=== PATIENT | male | born 1965 | race Caucasian/White ===

== ENCOUNTER 2020-03-31 23:04 | Emergency (ER) | payer OTHER ==
[~2020-03-31] VITALS: Ht 182.9 cm; Wt 90.7 kg
[2020-04-01 00:48] LABS: BASOPHILS # (AUTO) 0.1 (0.0-0.1); BASOPHILS % 2.5 % (0.0-1.0); EOSINOPHILS # (AUTO) 0.2 (0.0-0.4); EOSINOPHILS % 4.3 % (0.0-6.0); HEMATOCRIT 28.7 % (38.2-49.6); HEMOGLOBIN 7.7 g/dL (14.0-18.0); LYMPHOCYTES # (AUTO) 1.7 (1.0-3.2); LYMPHOCYTES % 34.7 % (18.0-39.1); MEAN CORPUSCULAR HEMOGLOBIN 16.2 pg (28-32); MEAN CORPUSCULAR HGB CONC 26.8 g/dL (31-35); MEAN CORPUSCULAR VOLUME 60.5 fL (81-99); MONOCYTES # (AUTO) 0.5 (0.2-0.8); MONOCYTES % 9.3 % (4.4-11.3); NEUTROPHILS # (AUTO) 2.4 (2.1-6.9); PLATELET COUNT 401 x10e3/uL (140-360); RED BLOOD COUNT 4.74 x10e6/uL (4.3-5.7)
[2020-04-01 00:55] LABS: CHLORIDE 98 mmol/L (98-107); POTASSIUM 4.2 mmol/L (3.5-5.1); SODIUM 130 mmol/L (136-145)
[2020-04-01 00:59] LABS: ALANINE AMINOTRANSFERASE 57 IU/L (0-55); ALBUMIN 3.8 g/dL (3.5-5.0); ALBUMIN/GLOBULIN RATIO 1.2 (0.8-2.0); ALKALINE PHOSPHATASE 113 IU/L (40-150); ANION GAP 17.2 mmol/L (8-16); BLOOD UREA NITROGEN < 5 mg/dL (7-26); CALCIUM 8.5 mg/dL (8.4-10.2); CARBON DIOXIDE 19 mmol/L (22-29); CREATINE KINASE 25 IU/L (30-200); CREATININE, SERUM 0.84 mg/dL (0.72-1.25); EST GLOMERULAR FILTRATION RATE > 60 ML/MIN (60-); GLUCOSE 129 mg/dL (74-118)
[2020-04-01 01:05] LABS: BUN/CREATININE RATIO 6 (6-25)
--- NOTE | 2020-04-01 01:20 | Emergency Department Note ---
History of Present Illnes History of Present Illness Chief Complaint: General Medicine Complaints History of Present Illness This is a 54 year old male arrives to the ED with complaints generalized malaise and weakness for several months. Patient's is concerned that the symptoms are a cause of his iron deficiency and underlying from a blood disorder. Chief Complaint Comment 54 Y/O MALE PT AAOX3 PRESENTS TO THE ER C/O GENERLIZED WEAKNESS AND NAUSEA FOR THE PAST X6 MONTHS WITH WORSENING TONIGHT; STATES HE HAS HAD DECREASED APPETITE AND NOT INTAKING ANY FLUIDS; PT REPORTS DAILY ETOH INTAKE, 2-4 BEERS DAILY; PT ALSO REPORTS INFLAMMATION ON HIS BUTTOCKS; NAD NOTED AT THIS TIME; V/S/S. Historian: Patient Arrival Mode: Car Onset (how long ago): month(s) Duration (how long): month(s) Timing of current episode: constant Progression: unchanged Chronicity: chronic Context: Denies recent illness, Denies recent immobilization, Denies trauma/injury, Denies new medications, Denies hx of DVT/PE, Denies non- compliance w/ medications Relieving factors: none Past Medical/Family History Physician Review I have reviewed the patient's past medical and family history. Any updates have been documented here. Past Medical History Recent Fever: No Clinical Suspicion of Infectio: No New/Unexplained Change in Ment: No Past Medical History: Anemia Past Surgical History: Appendectomy, Hernia Repair Other Surgery: RT FOOT SX Review of Systems Review of Systems Constitutional: Reports as per HPI, Reports malaise, Reports weakness EENTM: Reports no symptoms Cardiovascular: Reports no symptoms Respiratory: Reports no symptoms Gastrointestinal: Reports no symptoms Genitourinary: Reports no symptoms Musculoskeletal: Reports no symptoms Integumentary: Reports no symptoms Neurological: Reports no symptoms Psychological: Reports no symptoms Endocrine: Reports no symptoms Hematological/Lymphatic: Reports no symptoms Physical Exam Related Data Allergies: Coded Allergies: No Known Allergies (Unverified , 04/01/20) Triage Vital Signs Vital Signs Date Time Temp Pulse Resp B/P (MAP) Pulse Ox O2 Delivery O2 Flow Rate FiO2 04/01/20 00:04 98.1 95 20 145/81 100 Room Air Vital signs reviewed: Yes Physical Exam CONSTITUTIONAL Constitutional: Present well-developed, Present well-nourished HENT HENT: Present normocephalic, Present atraumatic, Present oropharynx clear/moist, Present nose normal HENT L/R: Present left ext ear normal, Present right ext ear normal EYES Eyes: Reports PERRL, Reports conjunctivae normal NECK Neck: Present ROM normal PULMONARY Pulmonary: Present effort normal, Present breath sounds normal CARDIOVASCULAR Cardiovascular: Present regular rhythm, Present heart sounds normal, Present capillary refill normal, Present normal rate GASTROINTESTINAL Abdominal: Present soft, Present nontender, Present bowel sounds normal GENITOURINARY Genitourinary: Present exam deferred SKIN Skin: Present warm, Present dry MUSCULOSKELETAL Musculoskeletal: Present ROM normal NEUROLOGICAL Neurological: Present alert, Present oriented x 3, Present no gross motor or sensory deficits PSYCHOLOGICAL Psychological: Present mood/affect normal, Present judgement normal Results Laboratory Result Diagram: 04/01/20 0020 04/01/20 0020 Laboratory Laboratory Tests Test 04/01/20 00:20 White Blood Count 4.84 x10e3/uL (4.8-10.8) Red Blood Count 4.74 x10e6/uL (4.3-5.7) Hemoglobin 7.7 g/dL (14.0-18.0) Hematocrit 28.7 % (38.2-49.6) Mean Corpuscular Volume 60.5 fL (81-99) Mean Corpuscular Hemoglobin 16.2 pg (28-32) Mean Corpuscular Hemoglobin Concent 26.8 g/dL (31-35) Red Cell Distribution Width 22.0 % (11.7-14.4) Platelet Count 401 x10e3/uL (140-360) Neutrophils (%) (Auto) 49.0 % (38.7-80.0) Lymphocytes (%) (Auto) 34.7 % (18.0-39.1) Monocytes (%) (Auto) 9.3 % (4.4-11.3) Eosinophils (%) (Auto) 4.3 % (0.0-6.0) Basophils (%) (Auto) 2.5 % (0.0-1.0) Neutrophils # (Auto) 2.4 (2.1-6.9) Lymphocytes # (Auto) 1.7 (1.0-3.2) Monocytes # (Auto) 0.5 (0.2-0.8) Eosinophils # (Auto) 0.2 (0.0-0.4) Basophils # (Auto) 0.1 (0.0-0.1) Absolute Immature Granulocyte (auto 0.01 x10e3/uL (0-0.1) Sodium Level 130 mmol/L (136-145) Potassium Level 4.2 mmol/L (3.5-5.1) Chloride Level 98 mmol/L (98-107) Carbon Dioxide Level 19 mmol/L (22-29) Anion Gap 17.2 mmol/L (8-16) Blood Urea Nitrogen < 5 mg/dL (7-26) Creatinine 0.84 mg/dL (0.72-1.25) Estimat Glomerular Filtration Rate > 60 ML/MIN (60-) BUN/Creatinine Ratio 6 (6-25) Glucose Level 129 mg/dL (74-118) Calcium Level 8.5 mg/dL (8.4-10.2) Total Bilirubin 0.4 mg/dL (0.2-1.2) Aspartate Amino Transf (AST/SGOT) 69 IU/L (5-34) Alanine Aminotransferase (ALT/SGPT) 57 IU/L (0-55) Alkaline Phosphatase 113 IU/L (40-150) Creatine Kinase 25 IU/L (30-200) Creatine Kinase MB 0.70 ng/mL (0-5.0) Troponin I 0.006 ng/mL (0-0.300) Total Protein 7.0 g/dL (6.5-8.1) Albumin 3.8 g/dL (3.5-5.0) Globulin 3.2 g/dL (2.3-3.5) Albumin/Globulin Ratio 1.2 (0.8-2.0) Lab results reviewed: Yes Imaging Imaging results reviewed: Yes Impressions IMPRESSION: Mild generalized brain volume loss, otherwise no intracranial abnormalities. Signed by: Dr. Dulce Nuñez M.D. on 04/01/2020 1:48 AM Procedures 12 Lead ECG Interpretation ECG Interpretation : ECG: ECG 1 Casing Flusher: Interpreted by ED physician Rhythm: sinus rhythm QRS axis: normal ST segments normal: Yes T waves normal: Yes T wave inversion: all Other findings: no other findings Q waves: all Clinical Impression: abnormal ECG Assessment & Plan Medical Decision Making MDM 54-year-old male arrives to the ED with complaints generalized malaise and weakness. Patient admits to a long-standing history of iron deficiency anemia. Patient's hemoglobin noted to be 7.7. Given patient's age and gender this is low and likely causing his symptoms of weakness and malaise. While there appears to be no indication for acute transfusion given his hemoglobin I did recommend outpatient hematology oncology follow-up urgently for further workup and possible iron infusions. Patient given iron supplements Colace. Patient and also informed of the concerns of possible malignancy causing patient's symptoms and recommended outpatient follow-up with hematology oncology. Assessment & Plan Final Impression: (1) Anemia (2) Iron deficiency anemia Depart Disposition: HOME, SELF-CARE Last Vital Signs Date Time Temp Pulse Resp B/P (MAP) Pulse Ox O2 Delivery O2 Flow Rate FiO2 04/01/20 00:04 98.1 95 20 145/81 100 Room Air Home Meds Active Scripts Docusate Sodium (COLACE) 100 Mg Cap, 100 MG PO DAILY, #30 CAP Prov:DEE DEE SINCLAIR DO 04/01/20 Ferrous Sulfate (FERROUS SULFATE) 325 Mg Tablet.dr 325 MG PO DAILY, #60 Prov:DEE DEE SINCLAIR DO 04/01/20 DEE DEE SINCLAIR DO Apr 01, 2020 01:20
--- NOTE | 2020-04-01 01:52 | Diagnostic Imaging Report ---
EXAMINATION: Head CT HISTORY: 54-year-old male with weakness for the past 6 months. COMPARISON: None. TECHNIQUE: Helical axial images of the head were obtained. Reformatted coronal and sagittal images from the axial data. Dose modulation, iterative reconstruction, and/or weight based adjustment of the mA/kV was utilized to reduce the radiation dose to as low as reasonably achievable. FINDINGS: Parenchyma: 1. No abnormal densities. 2. No mass or hemorrhage. No CT evidence of acute territorial vascular insult. Extra-axial spaces:No abnormal density. No extra-axial fluid collections Brain volume: Mild generalized parenchymal volume loss. Ventricles: No hydrocephalus or displacement. Arteries: No density suggestive of thrombus. Dural sinuses: No abnormal density. Foramen magnum: No mass, Chiari malformation, or basilar invagination. Sella: No obvious mass. Paranasal/mastoid sinuses: Imaged portions unremarkable. Skull/Scalp: No lytic or blastic lesions. No fractures. IMPRESSION: Mild generalized brain volume loss, otherwise no intracranial abnormalities. Signed by: Dr. Dulce Nuñez M.D. on 04/01/2020 1:48 AM
--- NOTE | 2020-04-01 01:57 | Diagnostic Imaging Report ---
EXAMINATION: CHEST SINGLE (PORTABLE) INDICATION: Weakness COMPARISON: None FINDINGS: TUBES and LINES: None. LUNGS: Normal lung volumes. Lungs are clear. No consolidations. PLEURA: No pleural effusion or pneumothorax. HEART AND MEDIASTINUM: The cardiomediastinal silhouette is unremarkable. BONES AND SOFT TISSUES: No acute osseous lesion. Soft tissues are unremarkable. UPPER ABDOMEN: No free air under the diaphragm. IMPRESSION: No acute thoracic radiographic abnormality. Signed by: Eran Gonzalez DO on 04/01/2020 1:54 AM
[2020-04-01] MEDS ORDERED: FERROUS SULFAT325 M1 PO (02:40)
[2020-04-01] MEDS ORDERED: COLACE100 MG PO (02:40)
[2020-04-01 02:48] VITALS: BP 138/76
== END 2020-04-01 03:10 | disposition home or self-care (01) ==
LOC: ER 04-01 00:20
DX: D50.9 Iron deficiency anemia, unspecified (principal); R53.81 Other malaise; R53.1 Weakness
CPT/HCPCS: 36415; 70450; 71045; 80053; 82550; 82553; 84484; 85025; 93005; 99283